=== PATIENT | male | born 1950 | race Caucasian/White ===

== ENCOUNTER → 2018-12-30 | Day surgery (SDC) | payer OTHER ==
[~2018-12-30] MED LIST: LACTATED RINGERS 1,000 ML IV SCH; LIDOCAINE 1% 20 ML VIAL (10MG/ML) FOR IV START INTRADERMA ONE; PROPOFOL 10 MG/ML 20 ML VIAL IV ONE
[2018-12-30 09:37] VITALS: TEMP 97.3
--- NOTE | 2018-12-30 11:08 | P.PCN ---
Date of Procedure: 12/30/18 Procedure(s) Performed: BRIEF HISTORY: Patient is a 68-year-old pleasant 8 male, scheduled for an elective colonoscopy as a part of screening for colorectal neoplasia. PROCEDURE PERFORMED: Colonoscopy. PREOPERATIVE DIAGNOSIS: Screening for colon cancer. IV sedation per Anesthesia. PROCEDURE: After informed consent was obtained, the patient, was brought into the endoscopy unit. IV sedation was administered by Anesthesia under continuous monitoring. Digital rectal examination was normal. Initially the Olympus CF-160 flexible video colonoscope was then inserted in the rectum, gradually advanced into the cecum without any difficulty. Careful examination was performed as the scope was gradually being withdrawn. Ileocecal valve and the appendiceal orifice were visualized and appeared normal. Prep was fair. Mucosa of the cecum, ascending colon, transverse colon, descending colon, sigmoid colon, and rectum appeared normal. Retroflexion was performed in the rectum and no lesions were seen. The patient tolerated the procedure well. IMPRESSION: Normal-appearing colon from rectum to cecum with no evidence of colorectal neoplasia . RECOMMENDATIONS: Findings of this examination were discussed with the patient as well as his family. He was advised to have a repeat screening colonoscopy in 10 years.
[2018-12-30 11:12] VITALS: RESP 17
[2018-12-30 11:24] VITALS: BP 135/80; PULSE 82
== END ==
LOC: ORWHC2ENDO 08:47
PROVIDERS: ATTEND Internal Medicine Gastroenterology
DX: Z12.11 Encounter for screening for malignant neoplasm of colon (principal); I10 Essential (primary) hypertension; K21.9 Gastro-esophageal reflux disease without esophagitis; Z79.1 Long term (current) use of non-steroidal anti-inflammatories (NSAID); Z79.899 Other long term (current) drug therapy; Z87.891 Personal history of nicotine dependence; Z90.49 Acquired absence of other specified parts of digestive tract
CPT/HCPCS: J2704; G0121; 45378

== ENCOUNTER 2021-07-19 06:37 | Observation (INO) | payer OTHER, MEDICARE ==
[2021-07-19] MEDS ORDERED: ASPIRIN 81 MG PO STA (06:45)
--- NOTE | 2021-07-19 07:18 | ED ---
Chest Pain HPI - General Chief Complaint: Chest Pain Stated Complaint: Chest Pain Time Seen by Provider: 07/19/21 06:45 Source: patient, RN notes reviewed Mode of arrival: ambulatory Limitations: no limitations - History of Present Illness Initial Comments: 71-year-old male presents emergency from chief complaint of chest discomfort, hypertension. Patient states that his been having issues with his blood pressure recently. Patient states is not taking his medications this morning. Patient only takes around 8 AM. Patient states his blood pressures been increasing since having over 19 in April. Patient states that he scheduled see Dr. Martinez for evaluation, echocardiogram. Patient states that he started having some pressure, palpitations discomfort in his chest overnight. Patient states symptoms are getting worse day by day. Patient denies any abdominal plain the leg swelling. Patient denies any history of cardiac disease. Denies fevers or chills - Related Data Home Medications Medication Instructions Recorded Confirmed Meloxicam [Mobic] 15 mg PO DAILY@0800 12/27/18 07/19/21 Omeprazole 20 mg PO DAILY@0800 12/27/18 07/19/21 amLODIPine [Norvasc] 10 mg PO DAILY@0812/27/18 07/19/21 HYDROcodone/APAP 5-325MG [[place] 1 tab PO TID PRN 07/19/21 07/19/21 5-325] Losartan Potassium 100 mg PO DAILY 07/19/21 07/19/21 Metoprolol Tartrate [Lopressor] 25 mg PO BID@0800,199907/19/21 07/19/21 Multivitamins, Thera [Multivitamin 1 tab PO DAILY@79907/19/21 07/19/21 (formulary)] busPIRone HCl [Buspar] 10 mg PO BID@08,199907/19/21 07/19/21 Allergies Allergy/AdvReac Type Severity Reaction Status Date / Time No Known Allergies Allergy Verified 07/19/21 08:16 Review of Systems ROS Statement: Those systems with pertinent positive or pertinent negative responses have been documented in the HPI. ROS Other: All systems not noted in ROS Statement are negative. Past Medical History Past Medical History: GERD/Reflux, Hypertension, Osteoarthritis (OA) Additional Past Medical History / Comment(s): PER SPOUSE: PATIENT HAD A "PROCEDURE WHERE DYE WAS INJECTED IN HIS SPINE AND HE WAS SEDATED", POSSIBLE RESPIRATORY ARRECT, SPOUSE STATES "HE WAS INTUBATED BUT THE ESOPHAGUS WAS TORN AND HE ASPIRATED AND WAS ON A VENT AFTER BEING TRANSFERRED TO A [facility]" ( STATES SHE WAS TOLD HER WOULD NOT MAKE IT THROUGH THE NIGHT, BUT HE DID RECOVER.) History of Any Multi-Drug Resistant Organisms: None Reported Past Surgical History: Appendectomy, Cholecystectomy Additional Past Surgical History / Comment(s): ORIF LEFT BIG TOE. Past Anesthesia/Blood Transfusion Reactions: No Reported Reaction Past Psychological History: No Psychological Hx Reported Smoking Status: Former smoker Past Alcohol Use History: Rare Past Drug Use History: None Reported General Exam Limitations: no limitations General appearance: alert, in no apparent distress Head exam: Present: atraumatic, normocephalic, normal inspection Eye exam: Present: normal appearance, PERRL, EOMI. Absent: scleral icterus, conjunctival injection, periorbital swelling ENT exam: Present: normal exam, mucous membranes moist Neck exam: Present: normal inspection, full ROM. Absent: tenderness, meningismus, lymphadenopathy Respiratory exam: Present: normal lung sounds bilaterally. Absent: respiratory distress, wheezes, rales, rhonchi, stridor Cardiovascular Exam: Present: normal rhythm, tachycardia, normal heart sounds. Absent: systolic murmur, diastolic murmur, rubs, gallop, clicks GI/Abdominal exam: Present: soft, normal bowel sounds. Absent: distended, tenderness, guarding, rebound, rigid Course Vital Signs 07/19/21 07/19/21 07/19/21 06:38 09:00 10:27 Temperature 98.7 F Pulse Rate 106 H 72 75 Respiratory 22 18 18 Rate Blood Pressure 198/97 151/89 154/90 O2 Sat by Pulse 97 95 94 L Oximetry Chest Pain MDM - MDM work up is negative though is patient has concerning symptoms including chest pain, palpitations persistent hypertension will be admitted for cardiac evaluation and echocardiogram. Disposition Clinical Impression: Chest pain Disposition: ADMITTED IP TO THIS HOSP Referrals: [facility],Clinic [Primary Care Provider] - 1-2 days
--- NOTE | 2021-07-19 07:27 | XR ---
EXAMINATION TYPE: XR chest 2V DATE OF EXAM: 07/19/2021 COMPARISON: 06/16/2013 HISTORY: Shortness of breath TECHNIQUE: Frontal and lateral views of the chest are obtained. FINDINGS: There is mild interstitial and small airspace opacities in the mid lower lung zone which w as not present on the prior study. There is no pneumothorax or large pleural effusion. Heart is borde rline in size. Pulmonary vasculature is not appear grossly congested. The osseous structures are intact. IMPRESSION: Mild acute cardiopulmonary disease as described above.
[2021-07-19 09:08] LABS: Basophils # (A) 0.1 k/uL (0-0.2); Basophils % (A) 1 %; Eosinophils # (A) 0.1 k/uL (0-0.7); Eosinophils % (A) 1 %; HCT 44.9 % (39.0-53.0); HGB 15.5 gm/dL (13.0-17.5); Lymphocytes # (A) 1.2 k/uL (1.0-4.8); Lymphocytes % (A) 13 %; MCHC 34.5 g/dL (31.0-37.0); MCV 95.6 fL (80.0-100.0); Mean Platelet Volume 7.9; Monocytes # (A) 0.4 k/uL (0-1.0); Monocytes % (A) 5 %; Neutrophils # (A) 6.7 k/uL (1.3-7.7); Neutrophils % (A) 76 %; Platelet Count 254 k/uL (150-450); WBC 8.8 k/uL (3.8-10.6)
[2021-07-19 09:21] LABS: ALT 39 U/L (4-49); AST 34 U/L (17-59); African American GFR (CKD) >90 (>60 ml/min/1.73 sqM); Albumin 4.9 g/dL (3.5-5.0); Alkaline Phosphatase 80 U/L (38-126); Anion Gap 8 mmol/L; Blood Urea Nitrogen 15 mg/dL (9-20); Calcium 9.9 mg/dL (8.4-10.2); Carbon Dioxide 28 mmol/L (22-30); Chloride 107 mmol/L (98-107); Glucose 134 mg/dL (74-99); Magnesium 1.7 mg/dL (1.6-2.3); Non-African American GFR(CKD) 89 (>60 ml/min/1.73 sqM); Potassium 3.7 mmol/L (3.5-5.1); Sodium 143 mmol/L (137-145); Total Bilirubin 0.8 mg/dL (0.2-1.3); Total Protein 8.3 g/dL (6.3-8.2)
[2021-07-19 09:23] LABS: INR 0.9 (<1.2); Prothrombin Time 9.9 sec (9.0-12.0)
[2021-07-19] MEDS ORDERED: methylPREDNISolone SOD SUCCI 125 MG/2 ML VIAL IV STA (10:00)
[2021-07-19] MEDS ORDERED: FAMOTIDINE 20 MG/2 ML VIAL IV STA (10:00)
[2021-07-19] MEDS ORDERED: diphenhydrAMINE 50 MG/ML 1 ML VIAL IVP STA (10:00)
--- NOTE | 2021-07-19 10:53 | CT ---
EXAMINATION TYPE: CT chest angio for PE DATE OF EXAM: 07/19/2021 COMPARISON: None HISTORY: Chest pains, shortness of breath CT DLP: 448.5 mGycm Automated exposure control for dose reduction was used. CONTRAST: CT Chest for pulmonary embolism performed with with IV Contrast, patient injected with 100, wasted 42 mL of Isovue 370. FINDINGS: LUNGS: The lungs are grossly clear, there is no concerning parenchymal mass or nodule identified. T here is no pleural effusion or pneumothorax seen. The tracheobronchial tree is patent. MEDIASTINUM: There is satisfactory enhancement of the pulmonary artery and its branches, there is no CT evidence for pulmonary embolism. There are no greater than 1 cm hilar or mediastinal lymph nodes. No pericardial effusion is seen. OTHER: No additional significant abnormality is seen. IMPRESSION: No evidence of acute cardiopulmonary disease and no pulmonary embolism.
[2021-07-19] MEDS ORDERED: NITROGLYCERIN SL TABS 0.4 MG TAB SUBLINGUAL PRN (11:04)
[2021-07-19] MEDS ORDERED: METOPROLOL TARTRATE 25 MG TAB PO STA (12:43)
--- NOTE | 2021-07-19 12:43 | P.HPIM ---
History of Present Illness This is a pleasant 71 years old male with past medical history of GERD/Reflux, Hypertension, Osteoarthritis . He follows up with the [place] [facility] with Dr. Mcpherson and Dr. Tubbs He presents because of some chest discomfort and hypertension. Patient states that his has last May and he got call with last April of last year, since then he was not is his blood pressure was going up, he went to see his primary care doctor Dr. Montes at the [facility] and he increase his losartan from 25-50 mg however his blood pressures was still going up so he went back to the [facility] and saw Dr. Zavala this time who did EKG for him and told him that he has irregular heartbeat and start him on metoprolol 25 mg and decrease his losartan 100 mg daily. Also he is on Norvasc 10 mg at home. And he was feeling some chest discomfort lumber straightened at 4:30 nonradiating all over his chest with some lightheadedness which was going on since April but the chest discomfort was new for him and his blood pressure was elevated 192/101 so he decided to come to emergency room. He denies dyspnea, as the distal occasional cough, no phlegm, no abdominal pain or nausea vomiting. No dysuria or urgency. He denies smoking, alcohol or illicit drugs. Review of Systems CONSTITUTIONAL: No fever, no malaise, no fatigue. HEENT: No recent visual problems or hearing problems. Denied any sore throat. CARDIOVASCULAR: No orthopnea, PND, no palpitations, no syncope. PULMONARY: No shortness of breath, no cough, no hemoptysis. GASTROINTESTINAL: No diarrhea, no nausea, no vomiting, no abdominal pain. Normoactive bowel sounds. NEUROLOGICAL: No headaches, no weakness, no numbness. HEMATOLOGICAL: Denies any bleeding or petechiae. GENITOURINARY: Denies any burning micturition, frequency, or urgency. MUSCULOSKELETAL/RHEUMATOLOGICAL: Denies any joint pain, swelling, or any muscle pain. ENDOCRINE: Denies any polyuria or polydipsia. Past Medical History Past Medical History: GERD/Reflux, Hypertension, Osteoarthritis (OA) Additional Past Medical History / Comment(s): PER SPOUSE: PATIENT HAD A "PROCEDURE WHERE DYE WAS INJECTED IN HIS SPINE AND HE WAS SEDATED", POSSIBLE RESPIRATORY ARRECT, SPOUSE STATES "HE WAS INTUBATED BUT THE ESOPHAGUS WAS TORN AND HE ASPIRATED AND WAS ON A VENT AFTER BEING TRANSFERRED TO A [facility]" ( STATES SHE WAS TOLD HER WOULD NOT MAKE IT THROUGH THE NIGHT, BUT HE DID RECOVER.) History of Any Multi-Drug Resistant Organisms: None Reported Past Surgical History: Appendectomy, Cholecystectomy Additional Past Surgical History / Comment(s): ORIF LEFT BIG TOE. Past Anesthesia/Blood Transfusion Reactions: No Reported Reaction Past Psychological History: No Psychological Hx Reported Smoking Status: Former smoker Past Alcohol Use History: Rare Past Drug Use History: None Reported Medications and Allergies Home Medications Medication Instructions Recorded Confirmed Type Meloxicam [Mobic] 15 mg PO DAILY@79912/27/18 07/19/21 History Omeprazole 20 mg PO DAILY@79912/27/18 07/19/21 History amLODIPine [Norvasc] 10 mg PO DAILY@79912/27/18 07/19/21 History HYDROcodone/APAP 5-325MG [[place] 1 tab PO TID PRN 07/19/21 07/19/21 History 5-325] Losartan Potassium 100 mg PO DAILY@79907/19/21 07/19/21 History Metoprolol Tartrate [Lopressor] 25 mg PO BID@0800,199907/19/21 07/19/21 History Multivitamins, Thera [Multivitamin 1 tab PO DAILY@00 07/19/21 07/19/21 History (formulary)] busPIRone HCl [Buspar] 10 mg PO BID@0800,199907/19/21 07/19/21 History Allergies Allergy/AdvReac Type Severity Reaction Status Date / Time No Known Allergies Allergy Verified 07/19/21 08:16 Physical Exam Vitals: Vital Signs Temp Pulse Resp BP Pulse Ox 07/19/21 10:27 75 18 154/90 94 L 07/19/21 09:00 72 18 151/89 95 07/19/21 06:38 98.7 F 106 H 22 198/97 97 Intake and Output 07/18/21 07/19/21 07/19/21 22:59 06:59 14:59 Other: Weight 88.451 kg GENERAL: The patient is alert and oriented x3, not in any acute distress. Well developed, well nourished. HEENT: Pupils are round and equally reacting to light. EOMI. No scleral icterus. No conjunctival pallor. Normocephalic, atraumatic. No pharyngeal erythema. No thyromegaly. CARDIOVASCULAR: S1 and S2 present. No murmurs, rubs, or gallops. PULMONARY: Chest is clear to auscultation, no wheezing or crackles. ABDOMEN: Soft, nontender, nondistended, normoactive bowel sounds. No palpable organomegaly. MUSCULOSKELETAL: No joint swelling or deformity. EXTREMITIES: No cyanosis, clubbing, or pedal edema. NEUROLOGICAL: Gross neurological examination did not reveal any focal deficits. SKIN: No rashes. No petechiae Results CBC & Chem 7: 07/19/21 08:19 07/19/21 08:19 Labs: Abnormal Lab Results - Last 24 Hours (Table) 07/19/21 07/19/21 Range/Units 08:19 08:19 D-Dimer 0.86 H (<0.60) mg/L FEU Glucose 134 H (74-99) mg/dL Total Protein 8.3 H (6.3-8.2) g/dL Assessment and Plan Assessment: His blood pressure on admission was 198/97, currently improved 154/90. Labs including CBC, INR, BMP and liver enzymes are unremarkable. Troponin is negative 1 with less than 0.012. His d-dimer is slightly elevated at 0.86. CTA of the chest EKG : showing sinus rhythm at 100 with PVCs and QTC 490 CTA of the chest: No evidence of pulmonary embolism and lungs are clear. In the emergency room he received aspirin 325 mg and resource conservationist consulted Plan: This is a pleasant 71 years old male who presents with chest discomfort and uncontrolled hypertension Continue with losartan, metoprolol and Norvasc. Increase metoprolol to 50 mg twice a day Cardiology consult, serial troponin. Continue with aspirin and check echocardiogram Check TSH check Doppler of the lower extremities Labs and medication were reviewed.. Continue same treatment. Continue with s ymptomatic treatment. Resume home medication. Monitor lytes and vitals. DVT and GI prophylaxis. Further recommendations depends on the clinical course of the patient DVT prophylaxis: Subcutaneous heparin GI Prophylaxis: Pepcid Prognosis is guarded
--- NOTE | 2021-07-19 15:43 | US ---
EXAMINATION TYPE: US venous doppler duplex LE DATE OF EXAM: 07/19/2021 3:25 PM COMPARISON: NONE CLINICAL HISTORY: leg swelling. Patient denies leg swelling, mild foot edema bilaterally is noted by technologist; admitted for HTN and dizziness. SIDE PERFORMED: Bilateral TECHNIQUE: The lower extremity deep venous system is examined utilizing real time linear array sonog toni with graded compression, doppler sonography and color-flow sonography. VESSELS IMAGED: Common Femoral Vein Deep Femoral Vein Greater Saphenous Vein * Femoral Vein Popliteal Vein Small Saphenous Vein * Proximal Calf Veins (* superficial vessels) Right Leg: Stuck Venous Valves seen in right Femoral Vein, otherwise, is negative for DVT. Left Leg: Negative for DVT IMPRESSION: No evidence of deep vein thrombosis in the legs.
[2021-07-19] MEDS: ACETAMINOPHEN TAB 325 MG TAB PO PRN (17:05)
[2021-07-19] MEDS ORDERED: METOPROLOL TARTRATE 25 MG TAB PO SCH (20:00)
[2021-07-19] MEDS: METOPROLOL TARTRATE 50 MG TAB PO SCH (21:16)
[2021-07-19] MEDS: busPIRone HCl 10 MG TAB PO SCH (21:16)
[2021-07-19] MEDS: FAMOTIDINE 20 MG/2 ML VIAL IV SCH (21:16)
[2021-07-19] MEDS: HYDROcodone/APAP 5-325MG 1 EACH TAB PO PRN (21:16)
[2021-07-19] MEDS: HEPARIN SODIUM,PORCINE/PF 5,000 UNIT/0.5 ML SYRINGE SQ SCH (21:17)
[2021-07-20] MEDS: ACETAMINOPHEN TAB 325 MG TAB PO PRN ×2 (01:00→08:27)
[2021-07-20] MEDS ORDERED: ASPIRIN 325 MG TAB PO SCH (09:00)
[2021-07-20] MEDS: busPIRone HCl 10 MG TAB PO SCH ×2 (09:13→20:48)
[2021-07-20] MEDS: FAMOTIDINE 20 MG/2 ML VIAL IV SCH (09:14)
[2021-07-20] MEDS: LOSARTAN 50 MG TAB PO SCH (11:18)
[2021-07-20] MEDS: amLODIPine 10 MG TAB PO SCH (11:18)
[2021-07-20] MEDS: METOPROLOL TARTRATE 50 MG TAB PO SCH ×2 (11:18→20:48)
[2021-07-20] MEDS: SPIRONOLACTONE 25 MG TAB PO SCH (11:19)
[2021-07-20] MEDS: HEPARIN SODIUM,PORCINE/PF 5,000 UNIT/0.5 ML SYRINGE SQ SCH ×2 (11:19→20:49)
[2021-07-20 11:42] LABS: African American GFR (CKD) 98.5 (60.0-200.0); BUN/Creat Ratio 26.11 Ratio (12.00-20.00); Blood Urea Nitrogen 23.5 mg/dL (9.0-27.0); Calcium 9.7 mg/dL (8.7-10.3); Carbon Dioxide 25.2 mmol/L (20.0-27.5); Chloride 102 mmol/L (96-109); Glucose 122 mg/dL (70-110); LDL Cholesterol,Calculated 188.3 mg/dL (0.0-131.0); Potassium 3.8 mmol/L (3.5-5.5); Sodium 141 mmol/L (135-145); VLDL Calculation 19.74 mg/dL (5.00-40.00)
--- NOTE | 2021-07-20 11:45 | P.CRDCN ---
History of Present Illness Consult date: 07/20/21 Chief complaint: Chest pain History of present illness: Patient is a pleasant 71-year-old gentleman with a past medical history significant for hypertension presented to the hospital not feeling well. He is under some stress since his a few months ago. He noticed lately and for the last few weeks that his pressure has not been under good control in spite of being compliant with his medications as well as his diet. For the last few days his pressure get worse and he decided to come to the hospital. He was experiencing symptoms of dizziness and lightheadedness but no presyncope or syncope. For the last few days he has been experiencing symptoms of indigestion and epigastric discomfort. No shortness of breath. When he presented to the hospital he underwent an EKG which showed sinus rhythm with PVCs but no significant or ischemic ST or T-wave abnormalities. 3 sets of cardiac enzymes were checked and came in to be unremarkable with a chest x-ray did not show any acute abnormalities. D-dimer was checked and came in to be abnormal but subsequently computed tomography scan of the chest showed no acute abnormalities. No known history of coronary artery disease or congestive heart failure or cardiac arrhythmia. His pressure has been elevated while he is in the hospital. The dose of beta ca has increased. Beside that he is on amlodipine as well as losartan and both at maximum doses. I'm going to add Aldactone to the current medical regimen. The patient's symptoms seems to be consistent with hypertension emergency. I feel that the symptoms of epigastric discomfort as well as dizziness and lightheadedness are related to uncontrolled blood pressure. Severe underlying coronary artery disease to be ruled out probably as an outpatient. Past Medical History Past Medical History: GERD/Reflux, Hypertension, Osteoarthritis (OA) Additional Past Medical History / Comment(s): PATIENT HAD A "PROCEDURE WHERE DYE WAS INJECTED IN HIS SPINE AND HE WAS SEDATED", POSSIBLE RESPIRATORY ARREST, SPOUSE STATES "HE WAS INTUBATED BUT THE ESOPHAGUS WAS TORN AND HE ASPIRATED AND WAS ON A VENT AFTER BEING TRANSFERRED TO A [facility]" ( STATES SHE WAS TOLD HER WOULD NOT MAKE IT THROUGH THE NIGHT, BUT HE DID RECOVER.)in 1984 History of Any Multi-Drug Resistant Organisms: None Reported Past Surgical History: Appendectomy, Back Surgery, Cholecystectomy Additional Past Surgical History / Comment(s): ORIF LEFT BIG TOE. Past Anesthesia/Blood Transfusion Reactions: No Reported Reaction Past Psychological History: No Psychological Hx Reported Smoking Status: Former smoker Past Alcohol Use History: Rare Additional Past Alcohol Use History / Comment(s): QUIT SMOKING ABOUT 20 YRS, SMOKED 15 YRS, 1PPD. Past Drug Use History: None Reported Medications and Allergies Home Medications Medication Instructions Recorded Confirmed Type Meloxicam [Mobic] 15 mg PO DAILY@0812/27/18 07/19/21 History Omeprazole 20 mg PO DAILY@79912/27/18 07/19/21 History amLODIPine [Norvasc] 10 mg PO DAILY@79912/27/18 07/19/21 History HYDROcodone/APAP 5-325MG [[place] 1 tab PO TID PRN 07/19/21 07/19/21 History 5-325] Losartan Potassium 100 mg PO DAILY@79907/19/21 07/19/21 History Metoprolol Tartrate [Lopressor] 25 mg PO BID@799,199907/19/21 07/19/21 History Multivitamins, Thera [Multivitamin 1 tab PO DAILY@79907/19/21 07/19/21 History (formulary)] busPIRone HCl [Buspar] 10 mg PO BID@08,199907/19/21 07/19/21 History Allergies Allergy/AdvReac Type Severity Reaction Status Date / Time No Known Allergies Allergy Verified 07/19/21 08:16 Physical Exam Vitals: Vital Signs Temp Pulse Pulse Pulse Resp BP BP 07/20/21 11:22 99 167/78 07/20/21 07:00 98.3 F 101 H 20 176/101 07/20/21 00:49 98.2 F 78 18 137/56 07/19/21 21:28 163/101 07/19/21 18:56 98.9 F 80 18 134/71 07/19/21 15:00 98.2 F 89 18 160/92 07/19/21 13:45 93 16 180/90 07/19/21 13:23 98.8 F 93 18 154/103 Pulse Ox 07/20/21 11:22 07/20/21 07:00 96 07/20/21 00:49 96 07/19/21 21:28 07/19/21 18:56 96 07/19/21 15:00 96 07/19/21 13:45 97 07/19/21 13:23 95 Intake and Output 07/19/21 07/20/21 07/20/21 22:59 06:59 14:59 Intake Total 120 Balance 120 Intake: Oral 120 Other: Voiding Method Toilet Toilet Toilet # Voids 1 1 - Constitutional General appearance: no acute distress - Respiratory Respiratory: bilateral: CTA - Cardiovascular Rhythm: regular Heart sounds: normal: S1, S2 Results 07/19/21 08:19 07/19/21 08:19 Cardiac Enzymes 07/19/21 Range/Units 13:54 Troponin I <0.012 (0.000-0.034) ng/mL Current Medications Generic Name Dose Route Start Last Admin Trade Name Freq PRN Reason Stop Dose Admin Acetaminophen 650 mg 07/19/21 16:46 07/20/21 08:27 Acetaminophen Tab 325 Mg Tab PO 650 mg Q4HR PRN Administration Fever and/ or Pain Hydrocodone Bitart/Acetaminophen 1 each 07/19/21 12:42 07/19/21 21:16 Hydrocodone/Apap 5-325mg 1 Each Tab PO 1 each TID PRN Administration Pain Amlodipine Besylate 10 mg 07/20/21 08:00 07/20/21 11:18 Amlodipine 10 Mg Tab PO 10 mg DAILY@0800 [facility] Administration Aspirin 325 mg 07/20/21 09:00 07/20/21 11:19 Aspirin 325 Mg Tab PO 325 mg DAILY [facility] Administration Buspirone HCl 10 mg 07/19/21 20:00 07/20/21 09:13 Buspirone Hcl 10 Mg Tab PO 10 mg BID@ [facility] Administration Famotidine 20 mg 07/20/21 21:00 Famotidine 20 Mg Tab PO BID [facility] Heparin Sodium (Porcine) 5,000 unit 07/19/21 21:00 07/20/21 11:19 Heparin Sodium,Porcine/Pf 5,000 Unit/0.5 Ml Syringe SQ Not Given Q12HR [facility] Losartan Potassium 100 mg 07/20/21 08:00 07/20/21 11:18 Losartan 50 Mg Tab PO 100 mg DAILY@0800 [facility] Administration Metoprolol Tartrate 50 mg 07/19/21 20:00 07/20/21 11:18 Metoprolol Tartrate 50 Mg Tab PO 50 mg BID@ [place] Administration Nitroglycerin 0.4 mg 07/19/21 11:04 Nitroglycerin Sl Tabs 0.4 Mg Tab SUBLINGUAL Q5M PRN Chest Pain Spironolactone 25 mg 07/20/21 11:15 07/20/21 11:19 Spironolactone 25 Mg Tab PO 25 mg DAILY [place] Administration Intake and Output 07/19/21 07/20/21 07/20/21 22:59 06:59 14:59 Intake Total 120 Balance 120 Intake: Oral 120 Other: Voiding Method Toilet Toilet Toilet # Voids 1 1 07/19/21 08:19 07/19/21 08:19 Assessment and Plan Assessment: Assessment #1 hypertension emergency #2 epigastric discomfort/dizziness likely related to hypertension emergency Plan #1 continue the current dose of losartan as well as amlodipine #2 agree about increasing the dose of metoprolol #3 add Aldactone to the current medical regimen #4 follow-up with the patient
--- NOTE | 2021-07-20 13:49 | ECHOF ---
Referral Reason:chest pain MEASUREMENTS -------- HEIGHT: 177.8 cm WEIGHT: 88.5 kg BP: 154/90 RVIDd: 3.7 cm (< 3.3) IVSd: 1.1 cm (0.6 - 1.1) LVIDd: 3.8 cm (3.9 - 5.3) LVPWd: 1.3 cm (0.6 - 1.1) IVSs: 1.5 cm LVIDs: 2.2 cm LVPWs: 1.6 cm LAESV Index (A-L): 39.35 ml/m Ao Diam: 3.4 cm (2.0 - 3.7) AV Cusp: 2.1 cm (1.5 - 2.6) LA Diam: 4.8 cm (2.7 - 3.8) MV E Luther: 0.82 m/s MV DecT: 216 ms MV A Luther: 1.04 m/s MV E/A Ratio: 0.78 AR PHT: 333 ms RAP: 5.00 mmHg RVSP: 30.26 mmHg FINDINGS -------- Sinus rhythm with extra systolic beats. This was a technically difficult study with suboptimal apical views. The left ventricular size is normal. There is mild concentric left ventricular hypertrophy. Overa ll left ventricular systolic function is low-normal with, an EF between 50 - 55 %. The right ventricle is mildly enlarged. LA is moderately dilated 34-39 ml/m2 The right atrium was not well visualized. 5.0mg of Lumason was utilized for enhancement of images Interatrial and interventricular septum intact. There is [id number]-bh-xljirlda aortic regurgitation. There is no evidence of aortic stenosis. Oebh-fb-bzyhacbm mitral regurgitation is present. Mild tricuspid regurgitation present. There is no evidence of pulmonary hypertension. The right v entricular systolic pressure, as measured by Doppler, is 30.26mmHg. There is no pulmonic regurgitation present. The aortic root size is normal. IVC Not well visulized. There is no pericardial effusion. CONCLUSIONS -------- 1. The left ventricular size is normal. 2. There is mild concentric left ventricular hypertrophy. 3. Overall left ventricular systolic function is low-normal with, an EF between 50 - 55 %. 4. The right ventricle is mildly enlarged. 5. LA is moderately dilated 34-39 ml/m2 6. There is [id number]-sq-kdxwhgve aortic regurgitation. 7. Etlw-zm-amejfsnf mitral regurgitation is present. 8. Mild tricuspid regurgitation present. BLACK JACK DEALER: Park Allison RDCS
[2021-07-20] MEDS ORDERED: MAG HYDROX/AL HYDROX/SIMETH 30 ML, HYOSCYAMINE ELIXIR 10 ML, LIDOCAINE VISCOUS 2% 10 ML PO ONE ×3 (15:39)
[2021-07-20] MEDS: PANTOPRAZOLE 40 MG/10 ML VIAL IVP SCH (16:56)
--- NOTE | 2021-07-20 20:47 | P.PN ---
Subjective This is a pleasant 71 years old male with past medical history of GERD/Reflux, Hypertension, Osteoarthritis . [facility] with Dr. Mcpherson and Dr. Tubbs He presents because of some chest discomfort and hypertension. Patient states that his has last May and he got call with last April of last year, since then he was not is his blood pressure was going up, he went to see his primary care doctor Dr. Montes at the [facility] and he increase his losartan from 25-50 mg however his blood pressures was still going up so he went back to the [facility] and saw Dr. Zavala this time who did EKG for him and told him that he has irregular heartbeat and start him on metoprolol 25 mg and decrease his losartan 100 mg daily. Also he is on Norvasc 10 mg at home. 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 He denies dyspnea, as the distal occasional cough, no phlegm, no abdominal pain or nausea vomiting. No dysuria or urgency. He denies smoking, alcohol or illicit drugs. 07/20/2021 Patient with no chest pain however he developed some epigastric upset during the day and we change his Pepcid and 2 Protonix and given GI cocktail. His blood pressure is better controlled and currently 146/70. He continued on his home dose of losartan 100 mg, Norvasc 10 mg, increase metoprolol to 50 mg, and Aldactone 25 mg added as well. Cardiology might even cleared him this evening if his blood pressure controlled however we will keep monitoring him for another 24 hours because of his anxiety and other symptoms. Objective - Vital Signs Vital signs: Vital Signs Temp 98.3 F 07/20/21 07:00 Pulse 101 H 07/20/21 07:00 Resp 20 07/20/21 07:00 BP 176/101 07/20/21 07:00 Pulse Ox 96 07/20/21 07:00 Intake & Output 07/19/21 07/20/21 07/20/21 18:59 06:59 18:59 Intake Total 120 Balance 120 Weight 88.451 kg Intake: Oral 120 Other: Voiding Method Toilet Toilet # Voids 1 1 - Exam GENERAL: The patient is alert and oriented x3, not in any acute distress. Well developed, well nourished. HEENT: Pupils are round and equally reacting to light. EOMI. No scleral icterus. No conjunctival pallor. Normocephalic, atraumatic. No pharyngeal erythema. No thyromegaly. CARDIOVASCULAR: S1 and S2 present. No murmurs, rubs, or gallops. PULMONARY: Chest is clear to auscultation, no wheezing or crackles. ABDOMEN: Soft, nontender, nondistended, normoactive bowel sounds. No palpable organomegaly. MUSCULOSKELETAL: No joint swelling or deformity. EXTREMITIES: No cyanosis, clubbing, or pedal edema. NEUROLOGICAL: Gross neurological examination did not reveal any focal deficits. SKIN: No rashes. no petechiae. - Labs CBC & Chem 7: 07/19/21 08:19 07/20/21 07:39 Assessment and Plan Assessment: Hypertension with urgency on admission Elevated d-dimer with negative CT of the chest and Doppler ultrasound of the legs for PE and DVT in the legs. Epigastric discomfort, history of GERD Anxiety Recent history of cough with infection without pneumonia or hypoxia, who was diagnosed on 04/2021 History of osteoarthritis Plan: This is a pleasant 71 years old male who presents with chest discomfort and uncontrolled hypertension Continue with losartan, metoprolol and Norvasc. Increase metoprolol to 50 mg twice a day. Continue with Aldactone Cardiology consult Labs and medication were reviewed.. Continue same treatment. Continue with symptomatic treatment. Resume home medication. Monitor lytes and vitals. DVT and GI prophylaxis. Further recommendations depends on the clinical course of the patient DVT prophylaxis: Subcutaneous heparin GI Prophylaxis: Protonix Prognosis is guarded
[2021-07-20] MEDS: HYDROcodone/APAP 5-325MG 1 EACH TAB PO PRN (20:48)
[2021-07-20] MEDS ORDERED: FAMOTIDINE 20 MG TAB PO SCH (21:00)
[2021-07-21 08:02] VITALS: BP 143/74; PULSE 75; RESP 18; TEMP 98.1
[2021-07-21] MEDS: METOPROLOL TARTRATE 50 MG TAB PO SCH (08:43)
[2021-07-21] MEDS: busPIRone HCl 10 MG TAB PO SCH (08:43)
[2021-07-21] MEDS: amLODIPine 10 MG TAB PO SCH (08:43)
[2021-07-21] MEDS: SPIRONOLACTONE 25 MG TAB PO SCH (08:43)
[2021-07-21] MEDS: LOSARTAN 50 MG TAB PO SCH (08:43)
[2021-07-21] MEDS: PANTOPRAZOLE 40 MG/10 ML VIAL IVP SCH (08:43)
[2021-07-21] MEDS: HEPARIN SODIUM,PORCINE/PF 5,000 UNIT/0.5 ML SYRINGE SQ SCH (08:48)
[2021-07-21] MEDS ORDERED: ASPIRIN 81 MG PO SCH (09:00)
--- NOTE | 2021-07-21 11:42 | P.PN ---
Subjective Patient is a pleasant 71-year-old gentleman with a past medical history significant for hypertension. 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 We are consulted for chest pain. Patient presented to the hospital not feeling well. He is under some stress since his a few months ago. He noticed lately and for the last few weeks that his pressure has not been under good control in spite of being compliant with his medications as well as his diet. For the last few days his pressure get worse and he decided to come to the hospital. No shortness of breath. When he presented to the hospital he underwent an EKG which showed sinus rhythm with PVCs but no significant or ischemic ST or T-wave abnormalities. 3 sets of cardiac enzymes were checked and came in to be unremarkable with a chest x-ray did not show any acute abnormalities. D-dimer was checked and came in to be abnormal but subsequently computed tomography scan of the chest showed no acute abnormalities. Ultrasound Dopplers of lower extremities revealed No DVT. No known history of coronary artery disease or congestive heart failure or cardiac arrhythmia. His pressure has been elevated while he is in the hospital. Patient seen and examined at bedside, no acute distress. He was started on Aldactone, and beta ca was increased. He is also maintained on amlodipine 10mg daily and losartan 100mg daily. His blood pressure has significantly improved. He no longer has chest discomfort. His echocardiogram revealed an EF of 5055 percent, LA is moderately dilated, mild to moderate aortic regurgitation, mild to moderate mitral regurgitation. Blood pressure 143/74, heart rate 75, afebrile, saturations greater than 92% on room air GENERAL: Well-appearing, well-nourished and in no acute distress. NECK: Supple without JVD or thyromegaly. LUNGS: Breath sounds clear to auscultation bilaterally. Respiration equal and unlabored. No wheezes, rales or rhonchi. HEART: Regular rate and rhythm systolic ejection murmur at apex. No rubs or gallops. S1 and S2 heard. EXTREMITIES: Normal range of motion, no edema. No clubbing or cyanosis. Peripheral pulses intact. ASSESSMENT Hypertension emergency Epigastric discomfort/dizziness likely related to hypertension emergency, acute coronary syndrome has ruled out PLAN The patient's symptoms seems to be consistent with hypertension emergency. Epigastric discomfort as well as dizziness and lightheadedness appear to be related to uncontrolled blood pressure. From a cardiology perspective, patient is stable to be discharged on current medication regimen with amlodipine 10 mg daily, losartan 100 mg daily, metoprolol tartrate 50 mg twice a day, spironolactone 25 mg daily. Severe underlying coronary artery disease to be ruled out probably as an outpatient. He has a follow up appointment with Dr. Martinez on 07/24/2021. Nurse Practitioner note has been reviewed, I agree with a documented findings and plan of care. Patient was seen and examined. Objective - Vital Signs Vital signs: Vital Signs Temp 98.1 F 07/21/21 07:00 Pulse 75 07/21/21 07:00 Resp 18 07/21/21 07:00 BP 143/74 07/21/21 07:00 Pulse Ox 97 07/21/21 07:00 Intake & Output 07/20/21 07/21/21 07/21/21 18:59 06:59 18:59 Intake Total 600 240 Balance 600 240 Intake: Oral 600 240 Other: Voiding Method Toilet Toilet # Voids 1 2 1 - Labs CBC & Chem 7: 07/19/21 08:19 07/20/21 07:39 Labs: Abnormal Lab Results - Last 24 Hours (Table) 07/20/21 Range/Units 07:39 BUN/Creatinine Ratio 26.11 H (12.00-20.00) Ratio Glucose 122 H (70-110) mg/dL Cholesterol 260.00 H (0.00-200.00) mg/dL LDL Cholesterol, Calc 188.3 H (0.0-131.0) mg/dL
--- NOTE | 2021-07-21 21:04 | P.DS ---
Providers Date of admission: 07/19/21 11:04 Attending physician: Arnulfo Oglesby MD Consults: 07/19/21 11:04 Consult Physician Urgent Consulting Provider: Kaden Martinez Consult Reason/Comments: chest pain, HTN Do you want consulting provider notified?: Yes Primary care physician: [facility] Hospital Course: Diagnoses: Hypertension with urgency on admission Elevated d-dimer with negative CT of the chest and Doppler ultrasound of the legs for PE and DVT in the legs. Epigastric discomfort, history of GERD Anxiety Recent history of cough with infection without pneumonia or hypoxia, who was diagnosed on 04/2021 History of osteoarthritis Diagnoses:ovid This is a pleasant 71 years old male with past medical history of GERD/Reflux, Hypertension, Osteoarthritis . He [facility] with [facility] [place] [facility] with Dr. Mcpherson and Dr. Tubbs He presents because of some chest discomfort and hypertension. Patient states that his has last May and he got covid last April of last year, since then he was not is his blood pressure was going up, he went to see his primary care doctor Dr. Montes at the [facility] and he increase his losartan from 25-50 mg however his blood pressures was still going up so he went back to the [facility] and saw Dr. Zavala this time who did EKG for him and told him that he has irregular heartbeat and start him on metoprolol 25 mg and decrease his losartan 100 mg daily. Also he is on Norvasc 10 mg at home. Admission his blood pressure was elevated so his metoprolol dose was increased to 25-50 mg and Aldactone 25 mg was added. And continued with his dose of los pili 100 mg Norvasc 10 mg, eventually his blood pressure is controlled 06/24/1960/70 upon discharge and heart rate control as well. Patient's symptoms improved and no more chest pain or dyspnea upon discharge and he was walking the hallways freely with no difficulty and top precipitator operator cleared him for discharge to follow up with Dr. Martinez top precipitator operator in 2/3 with stress test as an outpatient is recommended for him. Patient agrees, he will follow-up as recommended. Also patient has some epigastric discomfort which is improved on discharge. Patient was counseled to try to avoid NSAIDs like Mobic uses for his back pain and decreased he was counseled to use Tylenol or to talk to his PCP and he agrees. Baby aspirin is recommended for him upon discharge however he declined eating that it upset his stomach. As such patient was referred to GI Dr. Escalera as an outpatient and he agrees to call and make appointment. On the day of discharge patient is back to baseline and he was asymptomatic. With no chest pain or dyspnea, no change in urine or bowel habits. No fever. Patient was treated for discharge by top precipitator operator. Problems and management plan were discussed with the patient and he verbalized understanding and acceptance Patient was found stable and can be discharged home however he needs follow-up as an outpatient. [facility] and patient agrees Also patient was instructed to follow up with Dr. Clay on 07/24 and he agrees and also with GI Dr. Escalera in 1-2 weeks and increased: Make appointments. Physical exam Gen: patient is a AAOx3, no distress CVS: S1-S2, RRR, no murmur Lungs: B/L CTA, no wheezing Abdomen: soft, no distention, no tenderness, positive bowel sounds Extremity: no leg edema or induration Time spent more than 35 minutes Plan - Discharge Summary Discharge Rx Participant: No New Discharge Prescriptions: New Spironolactone [Aldactone] 25 mg PO DAILY 30 Days #30 tab Metoprolol Tartrate [Lopressor] 50 mg PO BID@799,1999 30 Days #60 tab Omeprazole [PriLOSEC] 20 mg PO AC-BID #60 cap Continue amLODIPine [Norvasc] 10 mg PO DAILY@0800 busPIRone HCl [Buspar] 10 mg PO BID@ HYDROcodone/APAP 5-325MG [[place] 5-325] 1 tab PO TID PRN PRN Reason: Pain Losartan Potassium 100 mg PO DAILY@0800 Discontinued Omeprazole 20 mg PO DAILY@0800 Meloxicam [Mobic] 15 mg PO DAILY@0800 Metoprolol Tartrate [Lopressor] 25 mg PO BID@ Multivitamins, Thera [Multivitamin (formulary)] 1 tab PO DAILY@0800 Discharge Medication List amLODIPine [Norvasc] 10 mg PO DAILY@0800 12/27/18 [History] HYDROcodone/APAP 5-325MG [[place] 5-325] 1 tab PO TID PRN 07/19/21 [History] Losartan Potassium 100 mg PO DAILY@0800 07/19/21 [History] busPIRone HCl [Buspar] 10 mg PO BID@07/19/21 [History] Metoprolol Tartrate [Lopressor] 50 mg PO BID@ 30 Days #60 tab 07/21/21 [Rx] Omeprazole [PriLOSEC] 20 mg PO AC-BID #60 cap 07/21/21 [Rx] Spironolactone [Aldactone] 25 mg PO DAILY 30 Days #30 tab 07/21/21 [Rx] Follow up Appointment(s)/Referral(s): Kaden Martinez MD [STAFF PHYSICIAN] - 07/24/21 10:30 am Carin Escalera MD [STAFF PHYSICIAN] - 1 Week (Coat Agent) [facility] [Primary Care Provider] - 1-2 days Patient Instructions/Handouts: Chest Pain (DC) Activity/Diet/Wound Care/Special Instructions: Heart healthy diet Activity is restricted till you see your doctor We recommend to avoid all NSAIDs like avoid Mobic, Motrin or ibuprofen or naproxen. Talked to your doctor before taking further pain medication Discharge Disposition: HOME SELF-CARE
== END 2021-07-21 13:27 | disposition home or self-care (01) ==
LOC: EC 06:37 → 6NMEDSUR 11:04
PROVIDERS: ADMIT Internal Medicine; ATTEND Internal Medicine
DX: R07.89 Other chest pain (principal); I16.1 Hypertensive emergency; R79.89 Other specified abnormal findings of blood chemistry; R10.13 Epigastric pain; I08.3 Combined rheumatic disorders of mitral, aortic and tricuspid valves; I49.3 Ventricular premature depolarization; I10 Essential (primary) hypertension; M19.90 Unspecified osteoarthritis, unspecified site; R42 Dizziness and giddiness; F41.9 Anxiety disorder, unspecified; F43.9 Reaction to severe stress, unspecified; K21.9 Gastro-esophageal reflux disease without esophagitis; Z20.822 Contact with and (suspected) exposure to COVID-19; Z79.1 Long term (current) use of non-steroidal anti-inflammatories (NSAID); Z79.899 Other long term (current) drug therapy; Z90.49 Acquired absence of other specified parts of digestive tract; Z87.891 Personal history of nicotine dependence; Z98.890 Other specified postprocedural states; Z86.16 Personal history of COVID-19
CPT/HCPCS: 96376 ×3; 96372 ×2; 96375 ×2; 96374; 99285; 36415; 93005; 93306; 85379; 83880; 80061; 80053; 80048; 84443; 83735; 84484; 85025; 85610; 85730; 87635; 71046; 93970; 71275; G0378 ×3; J1200; J2930; C9113 ×2; Q9950; Q9967; J1644 ×2

== ENCOUNTER 2021-08-30 16:10 | Emergency (ER) | payer OTHER ==
[2021-08-30 16:17] VITALS: TEMP 98.6
--- NOTE | 2021-08-30 16:49 | ED ---
Upper Extremity HPI - General Chief Complaint: Extremity Injury, Upper Stated Complaint: Hand Surgery Time Seen by Provider: 08/30/21 16:19 Source: patient, RN notes reviewed Mode of arrival: ambulatory Limitations: no limitations - History of Present Illness Initial Comments: This is a pleasant, [id number] 71-year-old male who presents to the emergency department after injuring his left hand on a table saw at about 1 PM. Patient was seen at [facility] and sent here for evaluation. Patient has injuries to the third, fourth, and fifth fingers of the left hand, these affect the distal phalanx. Patient has a transverse fracture through the distal phalanx of the fourth finger which is distracted. It fracture of the distal phalanx of the fifth finger. This does not appear to involve the joint space. Soft tissue injury to the third finger. Remainder the hand is unaffected. Patient has no other complaints. Patient was given cefazolin and gentamicin at [facility]. Patient was given a tetanus shot. Patient is complaining sharp pain to the hand which is exacerbated by movement and palpation. He denies any other symptomology. No headache, no fever or chills, no changes in vision or hearing, no sore throat or difficulty with speech, no neck pain, no chest pain or shortness of breath, no abdominal pain, no nausea or vomiting, no changes in urination or bowel movements, no numbness or tingling, , no skin rashes or lesions.Patient has a history of osteoarthritis, hypertension, and acid reflux. MD Complaint: Injury to:: hand - Related Data Home Medications Medication Instructions Recorded Confirmed amLODIPine [Norvasc] 10 mg PO DAILY@0800 12/27/18 07/19/21 HYDROcodone/APAP 5-325MG [[place] 1 tab PO TID PRN 07/19/21 07/19/21 5-325] Losartan Potassium 100 mg PO DAILY@79907/19/21 07/19/21 busPIRone HCl [Buspar] 10 mg PO BID@799,199907/19/21 07/19/21 Previous Rx's Medication Instructions Recorded Metoprolol Tartrate [Lopressor] 50 mg PO BID@799,1999 30 Days #60 07/21/21 tab Omeprazole [PriLOSEC] 20 mg PO AC-BID #60 cap 07/21/21 Spironolactone [Aldactone] 25 mg PO DAILY 30 Days #30 tab 07/21/21 Allergies Allergy/AdvReac Type Severity Reaction Status Date / Time No Known Allergies Allergy Verified 08/30/21 16:17 Review of Systems ROS Statement: Those systems with pertinent positive or pertinent negative responses have been documented in the HPI. ROS Other: All systems not noted in ROS Statement are negative. Past Medical History Past Medical History: GERD/Reflux, Hypertension, Osteoarthritis (OA) Additional Past Medical History / Comment(s): PATIENT HAD A "PROCEDURE WHERE DYE WAS INJECTED IN HIS SPINE AND HE WAS SEDATED", POSSIBLE RESPIRATORY ARREST, SPOUSE STATES "HE WAS INTUBATED BUT THE ESOPHAGUS WAS TORN AND HE ASPIRATED AND WAS ON A VENT AFTER BEING TRANSFERRED TO A [facility]" ( STATES SHE WAS TOLD HER WOULD NOT MAKE IT THROUGH THE NIGHT, BUT HE DID RECOVER.)in 1984 History of Any Multi-Drug Resistant Organisms: None Reported Past Surgical History: Appendectomy, Back Surgery, Cholecystectomy Additional Past Surgical History / Comment(s): ORIF LEFT BIG TOE. Past Anesthesia/Blood Transfusion Reactions: No Reported Reaction Past Psychological History: No Psychological Hx Reported Smoking Status: Former smoker Past Alcohol Use History: Rare Past Drug Use History: None Reported General Exam - General Exam Comments Initial Comments: Healthy-appearing 71-year-old male in no distress. Patient does not appear to be ill or toxic. Vital signs reviewed Limitations: no limitations General appearance: alert, in no apparent distress Head exam: Present: atraumatic, normocephalic, normal inspection Eye exam: Present: normal appearance, PERRL, EOMI. Absent: scleral icterus, conjunctival injection, periorbital swelling ENT exam: Present: normal exam, mucous membranes moist, TM's normal bilaterally, normal external ear exam Neck exam: Present: normal inspection, full ROM. Absent: tenderness, meningismus, lymphadenopathy Respiratory exam: Present: normal lung sounds bilaterally. Absent: respiratory distress, wheezes, rales, rhonchi, stridor Cardiovascular Exam: Present: regular rate, normal rhythm, normal heart sounds. Absent: systolic murmur, diastolic murmur, rubs, gallop, clicks GI/Abdominal exam: Present: soft, normal bowel sounds. Absent: distended, tenderness, guarding, rebound, rigid Extremities exam: Present: tenderness, other (Patient has injuries to the distal aspects of the left third through fifth fingers.). Absent: pedal edema, joint swelling, calf tenderness Back exam: Present: normal inspection Neurological exam: Present: alert, oriented X3, CN II-XII intact Psychiatric exam: Present: normal affect, normal mood Skin exam: Present: warm, dry, intact, normal color. Absent: rash Course Vital Signs 08/30/21 16:11 Temperature 98.6 F Pulse Rate 87 Respiratory 16 Rate Blood Pressure 149/77 O2 Sat by Pulse 97 Oximetry Procedures - Laceration Laceration #1 Consent Obtained: verbal consent Site: upper extremity, other (Left third through fifth fingers) Size (cm): 4 Description: irregular, clean Depth: simple, single layer Anesthetic Used: benzocaine 0.25% Anesthesia Technique: local infiltration, nerve block (Digital block, left fourth and fifth fingers) Amount (mls): 5 Pre-repair: wound explored, irrigated extensively Type of Sutures: nylon Size of Sutures: 4-0 (Suturing only to the left fourth finger distal phalanx area), 5-0 Number of Sutures: 3 Technique: simple, interrupted Patient Tolerated Procedure: well, no complications Additional Comments: 3 simple interrupted sutures were used to close the distal pharynx of left fourth finger loosely. All wounds were irrigated copiously with sterile water. 500 mL was used. Wounds were cleansed thoroughly. Bacitracin applied. Sterile dressing applied. Bulky dressing applied over that. Sling given. Patient had adequate neurovascular status both pre-and posttreatment. Medical Decision Making - Medical Decision Making Patient presented as a transfer from [facility] after having a table saw incident when he was cutting wood at home about 1 PM. Patient was sent for orthopedic evaluation/hand surgery. This case was discussed in detail with ED attending physician as well as the on-call orthopedic physician, Dr. Hadley. Wounds were described in detail. X-ray findings described. Dr. Hadley states the patient needed be digitally blocked and cleaned out thoroughly--no need for emergent surgical intervention according to the orthopedic physician. This was discussed with ED attending physician.. Patient received IV antibiotics at [facility]. We'll keep the patient on cephalexin until he can be seen in the office Wednesday morning. Dressing to stay in place until then. Had tetanus at [facility] here at [facility]. Treatment plan discussed with the patient. All questions answered. Patient was told to return to the ER for any signs or symptoms worsen. Told to return immediately if any other problems arise. All questions answered. Treatment plan discussed. Patient in agreement Every effort has been made to ensure accuracy of this dictation. However, due to the limitations of electronic medical records and dictation devices, errors in charting still occur. Disposition Clinical Impression: Open fracture of distal phalanx of finger of left hand, Nail avulsion, finger, Posterior dislocation of elbow Narrative: Traumatic open fractures of the distal phalanx of the left fourth and fifth fingers with displacement, left fourth finger is displaced and distracted, left fifth finger is comminuted. Neither finger involves the joint space. Traumatic nail avulsions of the left third and fourth fingers. Disposition: HOME SELF-CARE Condition: Stable Instructions (If sedation given, give patient instructions): Hand Fracture (ED), Acute Wound Care (ED), Nail Avulsion (ED) Additional Instructions: Follow-up with [facility] on Wednesday. Call at 8 AM. Leave the bandage in place until follow-up. Take the antibiotics as directed. Return to the ER immediately if any symptoms worsen, new symptoms arise, or any other problems develop. Is patient prescribed a controlled substance at d/c from ED?: No Referrals: Nadeem Hadley MD [STAFF PHYSICIAN] - 09/01/21 8:00 am (Call at 8 AM Wednesday to facilitate follow-up. I discussed the case with Dr. Hadley here in the emergency department today.) Time of Disposition: 17:49
[2021-08-30] MEDS ORDERED: BUPIVACAINE (PF) 0.5% 30 ML VIAL SQ STA (16:58)
[2021-08-30] MEDS ORDERED: BACITRACIN OINT 1 EACH PACKET TOPICAL ONE (17:45)
[2021-08-30] MEDS ORDERED: CEPHALEXIN 500 MG CAP PO STA (17:45)
[2021-08-30] MEDS ORDERED: CEPHALEXIN 500MG STARTER PACK 4 CAP BTL PO STA (17:59)
[2021-08-30 18:39] VITALS: BP 146/78; PULSE 80; RESP 18
== END 2021-08-30 18:39 | disposition home or self-care (01) ==
LOC: EC 16:10
DX: S62.635B Displaced fracture of distal phalanx of left ring finger, initial encounter for open fracture (principal); S62.637B Displaced fracture of distal phalanx of left little finger, initial encounter for open fracture; S53.125A Posterior dislocation of left ulnohumeral joint, initial encounter; I10 Essential (primary) hypertension; K21.9 Gastro-esophageal reflux disease without esophagitis; M19.90 Unspecified osteoarthritis, unspecified site; Z87.891 Personal history of nicotine dependence; Z79.899 Other long term (current) drug therapy; W27.0XXA Contact with workbench tool, initial encounter
CPT/HCPCS: 12002; 99283

== ENCOUNTER 2021-09-05 21:07 | Emergency (ER) | payer OTHER ==
[2021-09-05 21:19] VITALS: RESP 18; TEMP 97.9
[2021-09-05 21:54] LABS: Appearance,Urine Clear (Clear); Basophils # (A) 0.1 k/uL (0-0.2); Basophils % (A) 2 %; Bilirubin,Urine Negative (Negative); Blood,Urine Negative (Negative); Color,Urine Colorless; Eosinophils # (A) 0.2 k/uL (0-0.7); Eosinophils % (A) 3 %; Glucose,Urine (UA) Negative (Negative); HCT 42.3 % (39.0-53.0); HGB 14.5 gm/dL (13.0-17.5); Ketones,Urine Negative (Negative); Leukocyte Esterase,Urine Negative (Negative); Lymphocytes # (A) 1.4 k/uL (1.0-4.8); Lymphocytes % (A) 17 %; MCH 32.1 pg (25.0-35.0); MCHC 34.2 g/dL (31.0-37.0); MCV 93.9 fL (80.0-100.0); Mean Platelet Volume 7.5; Monocytes # (A) 0.6 k/uL (0-1.0); Monocytes % (A) 7 %; Neutrophils # (A) 5.5 k/uL (1.3-7.7); Neutrophils % (A) 69 %; Nitrite,Urine Negative (Negative); Platelet Count 290 k/uL (150-450); Protein,Urine Negative (Negative); RBC 4.51 m/uL (4.30-5.90); RDW 13.4 % (11.5-15.5); Specific Gravity,Urine 1.003 (1.001-1.035); Urobilinogen,Urine <2.0 mg/dL (<2.0)
--- NOTE | 2021-09-05 21:56 | XR ---
EXAMINATION TYPE: XR chest 2V DATE OF EXAM: 09/05/2021 COMPARISON: 07/19/2021 HISTORY: Chest pain TECHNIQUE: FINDINGS: Heart and mediastinum are normal. Lungs are clear of infiltrate. There is no heart failure. There are no hilar masses. The bony thorax is intact. IMPRESSION: No active cardiopulmonary disease. There is clearing of subsegmental atelectasis in the l ungs compared to old exam.
[2021-09-05 22:05] LABS: ALT 62 U/L (4-49); AST 32 U/L (17-59); African American GFR (CKD) >90 (>60 ml/min/1.73 sqM); Albumin 5.1 g/dL (3.5-5.0); Alkaline Phosphatase 83 U/L (38-126); Anion Gap 12 mmol/L; Blood Urea Nitrogen 17 mg/dL (9-20); Calcium 9.9 mg/dL (8.4-10.2); Carbon Dioxide 26 mmol/L (22-30); Chloride 105 mmol/L (98-107); Glucose 103 mg/dL (74-99); INR 0.9 (<1.2); Magnesium 1.6 mg/dL (1.6-2.3); Non-African American GFR(CKD) 81 (>60 ml/min/1.73 sqM); Partial Thromboplastin Time 26.3 sec (22.0-30.0); Potassium 3.7 mmol/L (3.5-5.1); Prothrombin Time 9.7 sec (9.0-12.0); Sodium 143 mmol/L (137-145); Total Bilirubin 0.5 mg/dL (0.2-1.3); Total Protein 8.6 g/dL (6.3-8.2)
[2021-09-05] MEDS ORDERED: HYDROmorphone 1 MG/ML 1 ML SYRINGE IVP STA (23:12)
--- NOTE | 2021-09-05 23:14 | ED ---
Chest Pain HPI - General Chief Complaint: Chest Pain Stated Complaint: chest pains Time Seen by Provider: 09/05/21 22:35 Source: patient, RN notes reviewed, old records reviewed Mode of arrival: wheelchair Limitations: no limitations - History of Present Illness Initial Comments: This is a 71-year-old male DF for evaluation. Patient denies a for evaluation of some anxiety admits to anxiety and arrival. Patient states he took his blood pressure blood pressure is mildly elevated heart rate was elevated a became concerned. Patient did take Her blood pressure medication prior to arrival and symptoms are improving. Patient has no other current complaints, no current chest pain or shortness of breath MD Complaint: chest pain, other (No current complaints) -: hour(s) Onset: during rest Pain Location: substernal Pain Radiation: none Severity: mild Quality: dull Consistency: now resolved Improves With: nothing Worsens With: nothing Context: new medications Other Symptoms: palpitations Treatments Prior to Arrival: none - Related Data Home Medications Medication Instructions Recorded Confirmed amLODIPine [Norvasc] 10 mg PO DAILY@0800 12/27/18 07/19/21 HYDROcodone/APAP 5-325MG [[place] 1 tab PO TID PRN 07/19/21 07/19/21 5-325] Losartan Potassium 100 mg PO DAILY@0800 07/19/21 07/19/21 busPIRone HCl [Buspar] 10 mg PO BID@0800,199907/19/21 07/19/21 Previous Rx's Medication Instructions Recorded Metoprolol Tartrate [Lopressor] 50 mg PO BID@0800,1999 30 Days #60 07/21/21 tab Omeprazole [PriLOSEC] 20 mg PO AC-BID #60 cap 07/21/21 Spironolactone [Aldactone] 25 mg PO DAILY 30 Days #30 tab 07/21/21 Cephalexin [Keflex] 500 mg PO Q6HR #28 cap 08/31/21 Allergies Allergy/AdvReac Type Severity Reaction Status Date / Time iodine Allergy Anaphylaxis Verified 09/05/21 21:21 Review of Systems ROS Statement: Those systems with pertinent positive or pertinent negative responses have been documented in the HPI. ROS Other: All systems not noted in ROS Statement are negative. Past Medical History Past Medical History: GERD/Reflux, Hypertension, Osteoarthritis (OA) Additional Past Medical History / Comment(s): PATIENT HAD A "PROCEDURE WHERE DYE WAS INJECTED IN HIS SPINE AND HE WAS SEDATED", POSSIBLE RESPIRATORY ARREST, SPOUSE STATES "HE WAS INTUBATED BUT THE ESOPHAGUS WAS TORN AND HE ASPIRATED AND WAS ON A VENT AFTER BEING TRANSFERRED TO A [facility]" ( STATES SHE WAS TOLD HER WOULD NOT MAKE IT THROUGH THE NIGHT, BUT HE DID RECOVER.)in 1984 History of Any Multi-Drug Resistant Organisms: None Reported Past Surgical History: Appendectomy, Back Surgery, Cholecystectomy Additional Past Surgical History / Comment(s): ORIF LEFT BIG TOE. Past Anesthesia/Blood Transfusion Reactions: No Reported Reaction Past Psychological History: No Psychological Hx Reported Smoking Status: Former smoker Past Alcohol Use History: Rare Past Drug Use History: None Reported General Exam General appearance: alert, in no apparent distress Head exam: Present: atraumatic, normocephalic, normal inspection Eye exam: Present: normal appearance, PERRL, EOMI. Absent: scleral icterus, conjunctival injection, periorbital swelling ENT exam: Present: normal exam, mucous membranes moist Neck exam: Present: normal inspection. Absent: tenderness, meningismus, lymphadenopathy Respiratory exam: Present: normal lung sounds bilaterally. Absent: respiratory distress, wheezes, rales, rhonchi, stridor Cardiovascular Exam: Present: regular rate, normal rhythm, normal heart sounds. Absent: systolic murmur, diastolic murmur, rubs, gallop, clicks GI/Abdominal exam: Present: soft, normal bowel sounds. Absent: distended, tenderness, guarding, rebound, rigid Extremities exam: Present: normal inspection, full ROM, normal capillary refill. Absent: tenderness, pedal edema, joint swelling, calf tenderness Back exam: Present: normal inspection Neurological exam: Present: alert, oriented X3, CN II-XII intact Psychiatric exam: Present: normal affect, normal mood Skin exam: Present: warm, dry, intact, normal color. Absent: rash Course Vital Signs 09/05/21 09/05/21 21:14 23:43 Temperature 97.9 F Pulse Rate 68 77 Respiratory 18 18 Rate Blood Pressure 154/82 161/93 O2 Sat by Pulse 97 95 Oximetry - Reevaluation(s) Reevaluation #1: 09/05/21 Medical record is reviewed Reevaluation #2: 09/05/21 Patient has no significant complaints will increase metoprolol dose tonight Reevaluation #3: 09/05/21 Patient informed results and questions answered Chest Pain MDM - MDM 71 male with atypical chest pain elevated blood pressure at home, no current findings here in the ER. At this time patient can be discharged home. Disposition Clinical Impression: Chest pain, Hypertension Disposition: HOME SELF-CARE Condition: Good Instructions (If sedation given, give patient instructions): Chest Pain (ED) Is patient prescribed a controlled substance at d/c from ED?: No Referrals: [facility],Clinic [Primary Care Provider] - 1-2 days
[2021-09-05 23:50] VITALS: BP 161/93; PULSE 77
== END 2021-09-05 23:30 | disposition home or self-care (01) ==
LOC: EC 21:07
DX: R07.89 Other chest pain (principal); I10 Essential (primary) hypertension; M19.90 Unspecified osteoarthritis, unspecified site; Z87.891 Personal history of nicotine dependence; Z88.8 Allergy status to other drugs, medicaments and biological substances; Z79.899 Other long term (current) drug therapy
CPT/HCPCS: 36415; 71046; 80053; 81003; 83735; 84484; 85025; 85610; 85730; 93005; 99285

== ENCOUNTER 2022-02-03 20:04 | Emergency (ER) | payer OTHER ==
[2022-02-03 20:15] VITALS: TEMP 98.3
[2022-02-04] MEDS ORDERED: hydrALAZINE HCL 25 MG TAB PO STA (00:14)
[2022-02-04] MEDS ORDERED: ACETAMINOPHEN TAB 500 MG TAB PO STA (00:15)
--- NOTE | 2022-02-04 00:41 | ED ---
General Adult HPI - General Chief complaint: Recheck/Abnormal Lab/Rx Stated complaint: High BP Time Seen by Provider: 02/04/22 00:06 Source: patient, RN notes reviewed Mode of arrival: ambulatory - History of Present Illness Initial comments: This is a pleasant 71-year-old male with a history of poorly controlled and difficult to control hypertension. He again presents today stating that his blood pressure was elevated at home. Patient took it at home and was in excess of 190/90. Patient became worried and came back to the ER for reevaluation. Patient essentially was on quadruple therapy for blood pressure. Patient states that hydralazine and spironolactone stopped his physician. At that time blood pressure was controlled. He states over the past several days has been running high. Patient denying any shortness breath or chest pain. No vision disturbance. No hearing disturbance. No slurred speech. Denying any significant headache. No vertigo. No gait disturbance. With urination. Patient was seen here yesterday for hypertension and flushing. Patient ended up getting a CT of the chest which apparently was ordered by the primary care phys ician. This did not show any acute changes yesterday. Patient also had blood work done which was essentially negative. However, he did not have an EKG done. No headache, no fever or chills, no changes in vision or hearing, no sore throat or difficulty with speech, no neck pain, no chest pain or shortness of breath, no abdominal pain, no nausea or vomiting, no changes in urination or bowel movements, no numbness or tingling, no extremity pain, no skin rashes or lesions. Past medical, surgical, social, and family history reviewed. - Related Data Home Medications Medication Instructions Recorded Confirmed amLODIPine [Norvasc] 10 mg PO DAILY 12/27/18 02/02/22 Losartan Potassium 100 mg PO HS 07/19/21 02/02/22 busPIRone HCl [Buspar] 10 mg PO BID 07/19/21 02/02/22 Ezetimibe [Zetia] 10 mg PO HS 02/02/22 02/02/22 HYDROcodone/APAP 5-325MG [[place] 1 tab PO TID PRN 02/02/22 02/02/22 5-325] Metoprolol Tartrate [Lopressor] 25 mg PO DAILY@1500 02/02/22 02/02/22 Multivitamins, Thera [Multivitamin 1 tab PO DAILY 02/02/22 02/02/22 (formulary)] Previous Rx's Medication Instructions Recorded Metoprolol Tartrate [Lopressor] 50 mg PO BID@0800,1999 30 Days #60 07/21/21 tab Omeprazole [PriLOSEC] 20 mg PO AC-BID #60 cap 07/21/21 Allergies Allergy/AdvReac Type Severity Reaction Status Date / Time iodine Allergy Anaphylaxis Verified 02/03/22 20:15 Review of Systems ROS Statement: Those systems with pertinent positive or pertinent negative responses have been documented in the HPI. ROS Other: All systems not noted in ROS Statement are negative. Past Medical History Past Medical History: GERD/Reflux, Hypertension, Osteoarthritis (OA) Additional Past Medical History / Comment(s): PATIENT HAD A "PROCEDURE WHERE DYE WAS INJECTED IN HIS SPINE AND HE WAS SEDATED", POSSIBLE RESPIRATORY ARREST, SPOUSE STATES "HE WAS INTUBATED BUT THE ESOPHAGUS WAS TORN AND HE ASPIRATED AND WAS ON A VENT AFTER BEING TRANSFERRED TO A [facility]" ( STATES SHE WAS TOLD HER WOULD NOT MAKE IT THROUGH THE NIGHT, BUT HE DID RECOVER.)in 1984 History of Any Multi-Drug Resistant Organisms: None Reported Past Surgical History: Appendectomy, Back Surgery, Cholecystectomy Additional Past Surgical History / Comment(s): ORIF LEFT BIG TOE. Past Anesthesia/Blood Transfusion Reactions: No Reported Reaction Past Psychological History: No Psychological Hx Reported Smoking Status: Former smoker Past Alcohol Use History: Rare Past Drug Use History: None Reported General Exam - General Exam Comments Initial Comments: This is blood pressure currently in excess of 160/88. Heart rate is rate around 100. Patient does not appear to be ill or toxic. General appearance: alert, in no apparent distress Head exam: Present: atraumatic, normocephalic, normal inspection Eye exam: Present: normal appearance, PERRL, EOMI. Absent: scleral icterus, conjunctival injection, periorbital swelling ENT exam: Present: normal exam, normal oropharynx, mucous membranes dry, mucous membranes moist, normal external ear exam Neck exam: Present: normal inspection, full ROM. Absent: tenderness, meningismus, lymphadenopathy Respiratory exam: Present: normal lung sounds bilaterally. Absent: respiratory distress, wheezes, rales, rhonchi, stridor, chest wall tenderness, accessory muscle use, decreased breath sounds, prolonged expiratory Cardiovascular Exam: Present: regular rate, normal rhythm, normal heart sounds. Absent: systolic murmur, diastolic murmur, rubs, gallop, clicks GI/Abdominal exam: Present: soft, normal bowel sounds. Absent: distended, tenderness, guarding, rebound, rigid Extremities exam: Present: normal inspection, full ROM, normal capillary refill. Absent: tenderness, pedal edema, joint swelling, calf tenderness Back exam: Present: normal inspection Neurological exam: Present: alert, oriented X3, CN II-XII intact Psychiatric exam: Present: normal affect, normal mood Skin exam: Present: warm, dry, intact, normal color. Absent: rash Course Vital Signs 02/03/22 02/03/22 02/04/22 20:12 21:07 01:45 Temperature 98.3 F Pulse Rate 104 H 101 H 86 Respiratory 18 18 20 Rate Blood Pressure 166/88 181/91 186/90 O2 Sat by Pulse 95 98 98 Oximetry EKG Findings - EKG Comments: EKG Findings:: EKG done at 0 249 reveals first-degree AV block with sinus rhythm. Rate is 77. MD interval 224 ms. Normal intervals otherwise. Normal axis. No acute ST or T-wave changes. Reviewed by the ED attending physician. Medical Decision Making - Medical Decision Making Patient had a CT of the chest yesterday which showed no evidence of pulmonary embolism. There was minimal scarring and subsegmental atelectasis in the posterior lung bases with no suspicious pulmonary mass. Remainder the patient's workup yesterday was essentially normal. I did give the patient 25 mg of hydralazine. Patient was on 25 mg 3 times a day before the medication was halted. We'll give her one dose here and have patient follow up with his extruder and his primary care physician for further treatment options. I did review the patient's workup from yesterday. There were no concerning findings. Troponin was negative today. EKG did not show any acute changes. I did give the patient 1 dose of hydralazine. Patient to follow-up with his regular physician for further guidance on blood pressure control. The case was discussed in detail with ED attending physician. Presentation, findings, treatment plan discussed in detail. Patient was told to return to the ER for any signs or symptoms worsen. Told to return immediately if any other problems arise. All questions answered. Treatment plan discussed. Patient in agreement Every effort has been made to ensure accuracy of this dictation. However, due to the limitations of electronic medical records and dictation devices, errors in charting still occur. Plumbing Assembler Dr. Woods - Lab Data Lab Results 02/04/22 02/04/22 Range/Units 02:15 03:00 Troponin I <0.012 (0.000-0.034) ng/mL Urine Color Light Yellow Urine Appearance Clear (Clear) Urine pH 6.0 (5.0-8.0) Ur Specific [place] 1.014 (1.001-1.035) Urine Protein Negative (Negative) Urine Glucose (UA) Negative (Negative) Urine Ketones Negative (Negative) Urine Blood Negative (Negative) Urine Nitrite Negative (Negative) Urine Bilirubin Negative (Negative) Urine Urobilinogen <2.0 (<2.0) mg/dL Ur Leukocyte Esterase Negative (Negative) Disposition Clinical Impression: Uncontrolled hypertension Disposition: HOME SELF-CARE Condition: Good Additional Instructions: No headache, no fever or chills, no changes in vision or hearing, no sore throat or difficulty with speech, no neck pain, no chest pain or shortness of breath, no abdominal pain, no nausea or vomiting, no changes in urination or bowel movements, no numbness or tingling, no extremity pain, no skin rashes or lesions. Past medical, surgical, social, and family history reviewed. Is patient prescribed a controlled substance at d/c from ED?: No Referrals: [facility],Clinic [Primary Care Provider] - 1-2 days Time of Disposition: 04:01
[2022-02-04 03:02] LABS: Appearance,Urine Clear (Clear); Bilirubin,Urine Negative (Negative); Blood,Urine Negative (Negative); Color,Urine Light Yellow; Glucose,Urine (UA) Negative (Negative); Ketones,Urine Negative (Negative); Leukocyte Esterase,Urine Negative (Negative); Nitrite,Urine Negative (Negative); Protein,Urine Negative (Negative); Specific Gravity,Urine 1.014 (1.001-1.035); Urobilinogen,Urine <2.0 mg/dL (<2.0)
[2022-02-04 04:35] VITALS: BP 180/88; PULSE 74; RESP 18
== END 2022-02-04 04:00 | disposition home or self-care (01) ==
LOC: EC 20:04
DX: I10 Essential (primary) hypertension (principal); Z87.891 Personal history of nicotine dependence; Z91.041 Radiographic dye allergy status
CPT/HCPCS: 36415; 81003; 84484; 93005; 99283

== ENCOUNTER 2022-02-22 14:44 | Emergency (ER) | payer OTHER ==
[2022-02-22 15:23] VITALS: BP 167/84; PULSE 95; RESP 16; TEMP 98.8
--- NOTE | 2022-02-22 16:30 | ED ---
URI HPI - General Chief Complaint: Upper Respiratory Infection Stated Complaint: Headache,Sore throat-wants covid screeing Time Seen by Provider: 02/22/22 15:30 Source: patient Mode of arrival: ambulatory Limitations: no limitations - History of Present Illness Initial Comments: Patient is a 72-year-old male presenting for Covid testing. Patient is comp laining of headache, sore throat, mild dry cough. Patient admits to mild fever and chills and diarrhea. Has been going on for the last 3 days. Patient states that his son and his girlfriend who live with him tested positive. He denies any chest pain, shortness of breath, nausea, vomiting, abdominal pain, back pain, hematochezia, melena, hematuria - Related Data Home Medications Medication Instructions Recorded Confirmed amLODIPine [Norvasc] 10 mg PO DAILY 12/27/18 02/02/22 Losartan Potassium 100 mg PO HS 07/19/21 02/02/22 busPIRone HCl [Buspar] 10 mg PO BID 07/19/21 02/02/22 Ezetimibe [Zetia] 10 mg PO HS 02/02/22 02/02/22 HYDROcodone/APAP 5-325MG [[place] 1 tab PO TID PRN 02/02/22 02/02/22 5-325] Metoprolol Tartrate [Lopressor] 25 mg PO DAILY@1500 02/02/22 02/02/22 Multivitamins, Thera [Multivitamin 1 tab PO DAILY 02/02/22 02/02/22 (formulary)] Previous Rx's Medication Instructions Recorded Metoprolol Tartrate [Lopressor] 50 mg PO BID@0800,1999 30 Days #60 07/21/21 tab Omeprazole [PriLOSEC] 20 mg PO AC-BID #60 cap 07/21/21 Allergies Allergy/AdvReac Type Severity Reaction Status Date / Time iodine Allergy Anaphylaxis Verified 02/22/22 15:23 Review of Systems ROS Statement: Those systems with pertinent positive or pertinent negative responses have been documented in the HPI. ROS Other: All systems not noted in ROS Statement are negative. Past Medical History Past Medical History: GERD/Reflux, Hypertension, Osteoarthritis (OA) Additional Past Medical History / Comment(s): PATIENT HAD A "PROCEDURE WHERE DYE WAS INJECTED IN HIS SPINE AND HE WAS SEDATED", POSSIBLE RESPIRATORY ARREST, SPOUSE STATES "HE WAS INTUBATED BUT THE ESOPHAGUS WAS TORN AND HE ASPIRATED AND WAS ON A VENT AFTER BEING TRANSFERRED TO A [facility]" ( STATES SHE WAS TOLD HER WOULD NOT MAKE IT THROUGH THE NIGHT, BUT HE DID RECOVER.)in 1984 History of Any Multi-Drug Resistant Organisms: None Reported Past Surgical History: Appendectomy, Back Surgery, Cholecystectomy Additional Past Surgical History / Comment(s): ORIF LEFT BIG TOE. Past Anesthesia/Blood Transfusion Reactions: No Reported Reaction Past Psychological History: No Psychological Hx Reported Smoking Status: Former smoker Past Alcohol Use History: Rare Past Drug Use History: None Reported General Exam Limitations: no limitations General appearance: alert, in no apparent distress Head exam: Present: atraumatic, normocephalic, normal inspection Eye exam: Present: normal appearance, EOMI. Absent: scleral icterus, periorbital swelling Neck exam: Present: normal inspection, full ROM Respiratory exam: Present: normal lung sounds bilaterally. Absent: respiratory distress, wheezes, rales, rhonchi, stridor Cardiovascular Exam: Present: regular rate, normal rhythm, normal heart sounds. Absent: systolic murmur, diastolic murmur, rubs, gallop, clicks Neurological exam: Present: alert, oriented X3, CN II-XII intact Psychiatric exam: Present: normal affect, normal mood Skin exam: Present: warm, dry, intact, normal color. Absent: rash Course Vital Signs 02/22/22 15:21 Temperature 98.8 F Pulse Rate 95 Respiratory 16 Rate Blood Pressure 167/84 O2 Sat by Pulse 98 Oximetry Medical Decision Making - Medical Decision Making Patient is a 72-year-old male presenting for Covid testing. Admits to headache, fever, chills, sore throat, cough, diarrhea. No chest pain or shortness of breath. On examination heart and lungs are clear to auscultation. Patient tested positive for Covid. Patient is currently taking BuSpar and amlodipine which may cause potential adverse reaction when taking Paxlovid. At this time believe it would be unsafe to discontinue both of his home medications, will not prescribe antiviral today. Educated and quarantine guidelines and supportive treatment. Follow-up with PCP. Report back to ER with any new or worsening symptoms. Discussed return parameters and answered all questions. Patient conveyed verbal understanding and agreed to the plan. I discussed this case in detail with my attending Dr. Miranda - Lab Data Lab Results 02/22/22 Range/Units 15:25 Coronavirus (PCR) Detected A (Not Detectd) Disposition Clinical Impression: COVID Disposition: HOME SELF-CARE Condition: Good Instructions (If sedation given, give patient instructions): COVID-19 (Coronavirus Disease 2019) (ED), How to Recover from COVID-19 at Home (ED) Additional Instructions: Quarantine at home for 5 days. If after this time URI or fever free, this is followed by 5 days of strict mask usage while in public. He must be fever free for 24 hours before ending her quarantine. Alternate Motrin and Tylenol at home for fever and pain control. Report back to ER with any new or worsening symptoms. Follow-up with PCP. Is patient prescribed a controlled substance at d/c from ED?: No Referrals: [facility],Clinic [Primary Care Provider] - 1-2 days Time of Disposition: 16:30
[2022-02-22] MEDS ORDERED: BENZOCAINE/MENTHOL LOZENG 1 EACH LOZENGE MUCOUS MEM PRN (16:44)
== END 2022-02-22 17:06 | disposition home or self-care (01) ==
LOC: EC 14:44
DX: U07.1 COVID-19 (principal); I10 Essential (primary) hypertension; M19.90 Unspecified osteoarthritis, unspecified site; Z87.891 Personal history of nicotine dependence; Z79.899 Other long term (current) drug therapy; Z91.041 Radiographic dye allergy status
CPT/HCPCS: 87635; 99283